=== PATIENT | male | born 1935 | race Two or more races ===

== ENCOUNTER 2024-12-04 17:06 | Inpatient (IN) | payer MEDICARE, OTHER ==
[~2024-12-04] VITALS: Ht 167.6 cm; Wt 68.0 kg
[2024-12-04] MEDS: OLANZAPINE 10 MG VIAL IM ONE (00:25)
[2024-12-04 17:57] LABS: PLATELET COUNT (AUTO) 219 K/uL (150-450); RED BLOOD CELL COUNT(AUTO) 4.14 MIL/uL (4.5-6.0); RED CELL DISTRIBUTION WIDTH 14.8 % (11.5-15.0); WHITE BLOOD COUNT (AUTO) 2.7 K/uL (4.3-11.0)
[2024-12-04 18:12] LABS: CALCIUM, SERUM 8.8 mg/dL (8.5-10.1); CREATININE 1.5 mg/dL (0.6-1.3); SODIUM SERUM 139 mmol/L (136-145); UREA NITROGEN, BLOOD 24 mg/dL (7-18)
[2024-12-04 18:14] LABS: APPEARANCE,URINE CLEAR (CLEAR); BLOOD, URINE NEGATIVE Ery/uL (NEGATIVE); LEUKOCYTE ESTERASE ,URINE NEGATIVE (NEGATIVE); NITRITE, URINE NEGATIVE (NEGATIVE); UGLUCOSE NEGATIVE (NEGATIVE)
[2024-12-04 18:19] LABS: ASPARTATE AMINOTRANSFERASE 17 U/L (15-37); TOTAL PROTEIN, SERUM 7.6 g/dL (6.4-8.2)
[2024-12-04 18:21] LABS: ALCOHOL, BLOOD < 3 mg/dL (0-10)
[2024-12-04 18:23] LABS: AMPHETAMINE, URINE NEGATIVE (NEGATIVE); BARBITURATE, URINE NEGATIVE (NEGATIVE); BENZODIAZEPINE, URINE NEGATIVE (NEGATIVE); CANNABINOID, URINE NEGATIVE (NEGATIVE); COCCAINE, URINE NEGATIVE (NEGATIVE); OPIATE, URINE NEGATIVE (NEGATIVE)
[2024-12-04] MEDS ORDERED: METO25TA6 PO (19:17)
[2024-12-04] MEDS ORDERED: ASCO-352 PO (19:17)
[2024-12-04] MEDS ORDERED: BISA10SU11 RC (19:17)
[2024-12-04] MEDS ORDERED: ACET-868 PO (19:17)
[2024-12-04] MEDS ORDERED: CHOL100062 PO (19:17)
[2024-12-04] MEDS ORDERED: IBUP-1955 PO (19:17)
[2024-12-04] MEDS ORDERED: DOCU100T2 PO (19:17)
[2024-12-04] MEDS ORDERED: POLY17PO4 PO (19:17)
[2024-12-04] MEDS ORDERED: APIX2.5T PO (19:17)
[2024-12-04] MEDS ORDERED: CALC500T53 PO (19:17)
[2024-12-04] MEDS ORDERED: OLANZAPINE 10 MG VIAL IM ONE (22:01)
[2024-12-05] MEDS ORDERED: ZOLPIDEM TARTRATE 5 MG TABLET PO PRN ×2 (01:00)
[2024-12-05] MEDS ORDERED: MAGNESIUM HYDROXIDE 30 ML UDC PO PRN (01:00)
[2024-12-05] MEDS ORDERED: MAG HYDROX/AL HYDROX/SIMETH 30 ML UDC PO PRN (01:00)
[2024-12-05] MEDS ORDERED: QUETIAPINE FUMARATE 25 MG TABLET PO PRN (01:00)
[2024-12-05] MEDS ORDERED: ACETAMINOPHEN 325 MG TABLET PO PRN (01:00)
[2024-12-05 01:26] VITALS: BP 148/69; TEMP 97.8; O2SAT 99
[2024-12-05] MEDS: BLOOD SUGAR DIAGNOSTIC 1 EACH STRIP IN ONE (01:40)
[2024-12-05 07:18] LABS: CALCIUM, SERUM 8.5 mg/dL (8.5-10.1); CREATININE 1.2 mg/dL (0.6-1.3); SODIUM SERUM 143.0 mmol/L (136-145); UREA NITROGEN, BLOOD 21.0 mg/dL (7-18)
[2024-12-05 08:00] VITALS: BP 116/99; TEMP 97.9; O2SAT 100
[2024-12-05 08:13] LABS: PLATELET COUNT (AUTO) 201 K/uL (150-450); RED BLOOD CELL COUNT(AUTO) 3.60 MIL/uL (4.5-6.0); RED CELL DISTRIBUTION WIDTH 14.6 % (11.5-15.0); WHITE BLOOD COUNT (AUTO) 2.3 K/uL (4.3-11.0)
[2024-12-05] MEDS: CALCIUM CARBONATE (1250) 500 MG TABLET PO SCH (09:32)
[2024-12-05] MEDS: ASCORBIC ACID 500 MG TABLET PO SCH (09:32)
[2024-12-05] MEDS: METOPROLOL TARTRATE 50 MG TABLET PO SCH (09:32)
[2024-12-05] MEDS: CHOLECALCIFEROL 1,000 UNIT TABLET (VIT D3) PO SCH (09:32)
[2024-12-05] MEDS: PANTOPRAZOLE 40 MG TABLET.DR PO SCH (09:33)
[2024-12-05] MEDS: APIXABAN 2.5 MG TABLET PO SCH (09:33)
[2024-12-05] MEDS: POLYETHYLENE GLYCOL 3350 17 GM POWD.PACK PO SCH (09:33)
[2024-12-05 16:00] VITALS: BP 132/69; TEMP 97.9; O2SAT 99
[2024-12-05] MEDS: DIVALPROEX SODIUM 125 MG TABLET.DR PO SCH (16:18)
[2024-12-05] MEDS: QUETIAPINE FUMARATE 25 MG TABLET PO PRN (16:20)
[2024-12-05] MEDS: QUETIAPINE FUMARATE 25 MG TABLET PO SCH (20:53)
[2024-12-06 05:08] VITALS: BP 138/77; TEMP 98.2; O2SAT 99
[2024-12-06 08:00] VITALS: BP 117/99; TEMP 97.9; O2SAT 99
[2024-12-06 12:27] LABS: CREATININE 1.4 mg/dL (0.6-1.3)
[2024-12-06 12:33] LABS: LDL 107 mg/dL (0-99)
[2024-12-06 12:38] LABS: ASPARTATE AMINOTRANSFERASE 14.0 U/L (15-37); CALCIUM, SERUM 8.7 mg/dL (8.5-10.1); CREATININE 1.4 mg/dL (0.6-1.3); SODIUM SERUM 143.0 mmol/L (136-145); TOTAL PROTEIN, SERUM 6.8 g/dL (6.4-8.2); UREA NITROGEN, BLOOD 23.0 mg/dL (7-18)
[2024-12-06 15:59] VITALS: BP 150/84; TEMP 98; O2SAT 97
[2024-12-07 06:58] LABS: CALCIUM, SERUM 8.9 mg/dL (8.5-10.1); CREATININE 1.2 mg/dL (0.6-1.3); SODIUM SERUM 143.0 mmol/L (136-145); UREA NITROGEN, BLOOD 23.0 mg/dL (7-18)
[2024-12-07 08:08] VITALS: BP 137/59; TEMP 97.8; O2SAT 99
[2024-12-07] MEDS: DOCUSATE SODIUM 100 MG CAPSULE PO PRN (09:26)
[2024-12-07 16:00] VITALS: BP 103/74; TEMP 97.9; O2SAT 98
[2024-12-07 20:45] VITALS: BP 126/69; TEMP 98.8; O2SAT 98
[2024-12-08] MEDS ORDERED: Z GUARD REMEDY 4 OZ OINT TP PRN (02:30)
[2024-12-08 08:00] VITALS: BP 119/46; TEMP 97.8; O2SAT 98
[2024-12-08 16:00] VITALS: BP 121/58; TEMP 98.2; O2SAT 98
[2024-12-08 20:36] VITALS: BP 135/68; TEMP 97.8; O2SAT 98
[2024-12-09 08:00] VITALS: BP 158/60; TEMP 97.7; O2SAT 100
[2024-12-09 10:59] LABS: CALCIUM, SERUM 8.6 mg/dL (8.5-10.1); CREATININE 1.3 mg/dL (0.6-1.3); SODIUM SERUM 144.0 mmol/L (136-145); UREA NITROGEN, BLOOD 23.0 mg/dL (7-18)
[2024-12-09 16:00] VITALS: BP 146/84; TEMP 97.8; O2SAT 97
[2024-12-09 19:51] VITALS: BP 112/75; TEMP 97.9; O2SAT 97
[2024-12-09] MEDS: DIVALPROEX SODIUM 125 MG TABLET.DR PO SCH (21:39)
[2024-12-09] MEDS: MIRTAZAPINE 15 MG TABLET PO SCH (21:41)
[2024-12-10 08:00] VITALS: BP 119/97; TEMP 97.8; O2SAT 97
[2024-12-10 15:59] VITALS: BP 119/70; TEMP 98; O2SAT 97
[2024-12-10] MEDS: QUETIAPINE FUMARATE 25 MG TABLET PO SCH (16:12)
[2024-12-10 20:17] VITALS: BP 119/51; TEMP 98.1; O2SAT 100
[2024-12-10] MEDS: DIVALPROEX SODIUM 125 MG TABLET.DR PO SCH (20:53)
[2024-12-11] MEDS: ZOLPIDEM TARTRATE 5 MG TABLET PO PRN (02:40)
[2024-12-11 08:00] VITALS: BP 129/57; TEMP 97.9; O2SAT 97
[2024-12-11] MEDS: QUETIAPINE FUMARATE 25 MG TABLET PO SCH (09:20)
[2024-12-11 16:00] VITALS: BP 124/54; TEMP 98.2; O2SAT 96
[2024-12-11 19:48] VITALS: BP 127/74; TEMP 98.1; O2SAT 96
[2024-12-12 08:00] VITALS: BP 135/67; TEMP 97.8; O2SAT 97
[2024-12-12 16:00] VITALS: BP 142/61; TEMP 98.6; O2SAT 100
[2024-12-12 19:59] VITALS: BP 151/90; TEMP 97.9; O2SAT 98
[2024-12-13 08:00] VITALS: BP 138/54; TEMP 98.5; O2SAT 98
[2024-12-13] MEDS: DIVALPROEX SODIUM 250 MG TABLET.DR PO SCH (09:20)
[2024-12-13 20:21] VITALS: BP 138/59; TEMP 98.2; O2SAT 99
[2024-12-14 08:11] VITALS: BP 146/57; TEMP 97.8; O2SAT 96
[2024-12-14 16:10] VITALS: BP 135/64; TEMP 98; O2SAT 98
[2024-12-14 20:00] VITALS: BP 140/86; TEMP 98; O2SAT 98
[2024-12-14 20:50] VITALS: BP 140/86; TEMP 98; O2SAT 98
[2024-12-15 08:00] VITALS: BP 137/96; TEMP 98.6; O2SAT 96
[2024-12-15 15:27] VITALS: BP 105/79; TEMP 98.8; O2SAT 95
[2024-12-15 20:46] VITALS: BP 147/68; TEMP 98.8; O2SAT 95
[2024-12-16 08:18] VITALS: BP 119/56; TEMP 97.8; O2SAT 98
[2024-12-16 16:00] VITALS: BP 136/65; TEMP 98.7; O2SAT 99
[2024-12-16 19:55] VITALS: BP 158/56; TEMP 98.6; O2SAT 99
[2024-12-17 07:14] LABS: PLATELET COUNT (AUTO) 134 K/uL (150-450); RED BLOOD CELL COUNT(AUTO) 3.51 MIL/uL (4.5-6.0); RED CELL DISTRIBUTION WIDTH 14.8 % (11.5-15.0); WHITE BLOOD COUNT (AUTO) 2.0 K/uL (4.3-11.0)
[2024-12-17 07:44] LABS: ASPARTATE AMINOTRANSFERASE 26.0 U/L (15-37); CALCIUM, SERUM 8.6 mg/dL (8.5-10.1); CREATININE 1.4 mg/dL (0.6-1.3); PHOSPHORUS 2.9 mg/dL (2.5-4.9); SODIUM SERUM 146.0 mmol/L (136-145); TOTAL PROTEIN, SERUM 6.9 g/dL (6.4-8.2); UREA NITROGEN, BLOOD 31.0 mg/dL (7-18)
[2024-12-17 08:05] VITALS: BP 140/90; TEMP 97.7; O2SAT 97
[2024-12-17 16:00] VITALS: BP 115/76; TEMP 97.8; O2SAT 98
[2024-12-17 19:47] VITALS: BP 138/65; TEMP 97.9; O2SAT 96
[2024-12-17 20:00] VITALS: BP 138/65; TEMP 97.9; O2SAT 96
[2024-12-18 08:00] VITALS: BP 169/86; TEMP 97.8; O2SAT 98
[2024-12-18 16:00] VITALS: BP 135/69; TEMP 97.8; O2SAT 98
[2024-12-18 20:44] VITALS: BP 142/76; TEMP 97.7; O2SAT 92
[2024-12-19 07:05] LABS: PLATELET COUNT (AUTO) 125 K/uL (150-450); RED BLOOD CELL COUNT(AUTO) 3.67 MIL/uL (4.5-6.0); RED CELL DISTRIBUTION WIDTH 14.4 % (11.5-15.0); WHITE BLOOD COUNT (AUTO) 2.6 K/uL (4.3-11.0)
[2024-12-19 07:55] VITALS: BP 110/64; TEMP 97.7; O2SAT 98
== END 2024-12-19 15:04 | DRG 885 ==
LOC: ER 17:16 → GPS 22:46
PROVIDERS: ADMIT Psychiatry & Neurology Psychiatry; ATTEND Internal Medicine
DX: F39 Unspecified mood [affective] disorder (principal); N17.9 Acute kidney failure, unspecified; F03.911 Unspecified dementia, unspecified severity, with agitation; F03.93 Unspecified dementia, unspecified severity, with mood disturbance; F03.92 Unspecified dementia, unspecified severity, with psychotic disturbance; E87.0 Hyperosmolality and hypernatremia; F29 Unspecified psychosis not due to a substance or known physiological condition; I10 Essential (primary) hypertension; I48.91 Unspecified atrial fibrillation; Z79.01 Long term (current) use of anticoagulants; D72.819 Decreased white blood cell count, unspecified; R13.10 Dysphagia, unspecified; F32.A Depression, unspecified; Z79.899 Other long term (current) drug therapy
CPT/HCPCS: 36415; 80048-TC; 80053-TC; 80061-TC; 80076-TC; 80164-TC; 82565-TC; 82962-TC; 83735-TC; 84100-TC; 85025-TC; 87081-TC; 97110-TC; 97116-TC; 97530-TC; 98960; G0480; J3490